=== PATIENT | female | born 2000 | race African-American/Black ===

== ENCOUNTER 2024-04-28 17:11 | Emergency (ER) | payer OTHER ==
[~2024-04-28] VITALS: Ht 154.9 cm; Wt 65.7 kg
[2024-04-28 17:40] VITALS: TEMP 98.4; O2SAT 99
[2024-04-28] MEDS ORDERED: LIDO700A30 TP (20:18)
[2024-04-28] MEDS ORDERED: CYCL10TA21 MT (20:18)
[2024-04-28 20:33] VITALS: BP 129/57; PULSE 85; RESP 16; O2SAT 99
== END 2024-04-28 20:39 | disposition home or self-care (01) ==
LOC: ER 17:11
DX: M62.838 Other muscle spasm (principal); V43.52XA Car driver injured in collision with other type car in traffic accident, initial encounter; Y93.89 Activity, other specified; Y92.89 Other specified places as the place of occurrence of the external cause; Y99.8 Other external cause status
CPT/HCPCS: 99283